=== PATIENT | male | born 1975 | race Caucasian/White ===

== ENCOUNTER 2017-01-12 19:29 | Emergency (ER) | payer BC, OTHER ==
[2017-01-12 19:42] VITALS: O2SAT 95
[2017-01-12] MEDS ORDERED: Rocephin 1000 MG INJ IM ONE (19:44)
[2017-01-12] MEDS ORDERED: Rocephin 1000 MG INJ ONE (19:47)
[2017-01-12] MEDS ORDERED: XYLOCAINE 1% HCL 20 ML MDV ONE (19:47)
--- NOTE | 2017-01-12 19:48 | ERPHSYRPT ---
- History of Present Illness Time Seen by Provider: 01/12/17 19:45 Source: patient Exam Limitations: no limitations Patient Subjective Stated Complaint: swelling to right with blister from rubbing of sock.. pain up to calf. no known injury. Triage Nursing Assessment: swelling to left ankle with open blistered area noted top back of ankle with redness. + pedal pulse persent.. Physician History: swelling to right with blister from rubbing of sock.. pain up to calf. no known injury. no fever Method of Injury: unknown Occurred: this afternoon Severity of Pain-Max: mild Severity of Pain-Current: mild Lower Extremities Pain: foot: right, ankle: right Modifying Factors: Improves With: nothing Associated Symptoms: none Allergies/Adverse Reactions: acetaminophen [From Darvocet-N 100] Allergy (Mild, Verified 04/20/13 13:16) Penicillins Allergy (Mild, Verified 04/20/13 13:16) propoxyphene napsylate [From Darvocet-N 100] Allergy (Mild, Verified 04/20/13 13 :16) Home Medications: Fluoxetine HCl 20 mg [Prozac 20 MG] 20 mg PO 01/12/17 [History] Gabapentin 400 mg PO TID 01/12/17 [History] Hx Tetanus, Diphtheria Vaccination/Date Given: No Hx Influenza Vaccination/Date Given: No Hx Pneumococcal Vaccination/Date Given: No Immunizations Up to Date: Yes (staets 4 years ag) - Review of Systems Constitutional: No Symptoms Eyes: No Symptoms Ears, Nose, & Throat: No Symptoms Respiratory: No Symptoms Cardiac: No Symptoms Abdominal/Gastrointestinal: No Symptoms Genitourinary Symptoms: No Symptoms Musculoskeletal: Joint Redness, Joint Swelling - Past Medical History Pertinent Past Medical History: Yes Neurological History: No Pertinent History ENT History: No Pertinent History Cardiac History: Hypertension Respiratory History: No Pertinent History Endocrine Medical History: No Pertinent History Musculoskeletal History: No Pertinent History GI Medical History: No Pertinent History History: No Pertinent History Psycho-Social History: Anxiety, Depression Male Reproductive Disorders: No Pertinent History - Past Surgical History Past Surgical History: Yes Neuro Surgical History: No Pertinent History Cardiac: No Pertinent History Respiratory: No Pertinent History Gastrointestinal: Appendectomy Genitourinary: No Pertinent History Musculoskeletal: Orthopedic Surgery, Other Male Surgical History: No Pertinent History Other Surgical History: HARIS HANDS FROM FRACTURES IN THE PAST - Social History Smoking Status: Current every day smoker How long have you smoked: 20 Exposure to second hand smoke: Yes Drug Use: none Patient Lives Alone: No - Nursing Vital Signs Nursing Vital Signs: Initial Vital Signs Temperature 98.8 F 01/12/17 19:33 Pulse Rate 102 H 01/12/17 19:33 Respiratory Rate 18 01/12/17 19:33 Blood Pressure 151/85 01/12/17 19:33 O2 Sat by Pulse Oximetry 95 01/12/17 19:33 Pain Scale Pain Intensity 5 - Physical Exam General Appearance: no apparent distress Back Exam: normal inspection Ankle Exam: right ankle: soft tissue tenderness Neuro/Tendon Exam: normal sensation Mental Status Exam: alert Skin Exam: normal color SpO2 Interpretation: normal SpO2: 95 - Course Nursing assessment & vital signs reviewed: Yes Ordered Tests: Medication Summary Generic Name Dose Route Start Last Admin Trade Name Freq PRN Reason Stop Dose Admin Ceftriaxone Sodium 1,000 mg 01/12/17 19:44 Rocephin 1000 Mg Inj IM 01/12/17 19:45 STAT ONE - Progress Progress: unchanged Counseled pt/family regarding: diagnosis, need for follow-up - Departure Time of Disposition: 19:48 Departure Disposition: Home Clinical Impression: Cellulitis of right ankle Condition: Stable Critical Care Time: No Referrals: DOCTOR,NO FAMILY [Primary Care Provider] - Instructions: Cellulitis -- Adult Additional Instructions: Please follow the instructions given to you. Please take your medication as prescribed if given. If symptoms recur or get worse, come back to the emergency room if you cannot reach your primary care physician, or call your primary care physician for an appointment. Again if your symptoms get worse, come back to the emergency room. Thanks for visiting emergency room, and let us take care of you. Prescriptions: Ciprofloxacin [Cipro 500 MG] 500 mg PO BIDAC #20 tablet
[2017-01-12 20:17] VITALS: BP 137/78; PULSE 104
== END 2017-01-12 20:17 | disposition home or self-care (01) ==
LOC: ED 19:29
DX: L03.115 Cellulitis of right lower limb (principal)
CPT/HCPCS: 96372; 99284; J0696

== ENCOUNTER 2019-01-16 17:36 | Emergency (ER) | payer MEDICARE ==
[2019-01-16] MEDS ORDERED: GlucaGen 1 MG IV ONE (18:06)
--- NOTE | 2019-01-16 18:11 | ERPHSYRPT ---
- History of Present Illness Time Seen by Provider: 01/16/19 17:55 Source: patient Exam Limitations: no limitations Patient Subjective Stated Complaint: Pt states "I was eating a bbq sandwhich and I hiccuped at the same time and it felt like I got something down the wrong pipe. I cleared that but now I have something stuck in my chest, I tried to drink water and I threw it all back up." Triage Nursing Assessment: Pt presented alert and oriented X 3, skin pwd Pt ambualtes with an upright steady gait, able to speak in clear full sentences. Pt in no respiratory distress, pt dry heaving. Physician History: Patient was eating pork and swallowed a large amount. He began belching and anytime he tried to consume fluid, he immediately regurgitated the liquids back up and he feels like something is stuck in his chest. Timing/Duration: today, hour(s) (1) Severity: moderate Modifying Factors: Worsens With: eating Associated Symptoms: No nausea, No vomiting, No abdominal pain, No shortness of breath, No heartburn, No diaphoresis, No cough, No chills, No chest pain, No fever, No headaches, No loss of appetite, No malaise, No rash, No syncope, No seizure, No weakness Allergies/Adverse Reactions: acetaminophen [From Darvocet-N 100] Allergy (Mild, Verified 04/20/13 13:16) Penicillins Allergy (Mild, Verified 04/20/13 13:16) propoxyphene napsylate [From Darvocet-N 100] Allergy (Mild, Verified 04/20/13 13 :16) Home Medications: Gabapentin 400 mg PO TID 01/12/17 [History] ARIPiprazole [Aripiprazole] 5 mg PO DAILY 01/16/19 [History] Trazodone HCl 50 mg [Desyrel 50 mg] 50 mg PO DAILY 01/16/19 [History] Hx Tetanus, Diphtheria Vaccination/Date Given: Yes Hx Influenza Vaccination/Date Given: Yes Hx Pneumococcal Vaccination/Date Given: No Immunizations Up to Date: Yes - Review of Systems Constitutional: No Fever, No Chills Eyes: No Eye Pain, No Vision Changes Ears, Nose, & Throat: Painful Swallowing, No Mouth Swelling, No Throat Pain, No Throat Swelling, No Stridor Respiratory: No Cough, No Dyspnea Cardiac: No Chest Pain, No Edema, No Syncope Abdominal/Gastrointestinal: No Abdominal Pain, No Nausea, No Vomiting, No Diarrhea, No Hematemesis, No Hematochezia Genitourinary Symptoms: No Dysuria, No Hematuria, No Flank Pain Musculoskeletal: No Back Pain, No Neck Pain, No Myalgias Skin: No Rash Neurological: No Dizziness, No Focal Weakness, No Sensory Changes Psychological: No Symptoms Endocrine: No Symptoms Hematologic/Lymphatic: No Easy Bleeding, No Easy Bruising All Other Systems: Reviewed and Negative - Past Medical History Pertinent Past Medical History: Yes Neurological History: No Pertinent History ENT History: No Pertinent History Cardiac History: Hypertension Respiratory History: No Pertinent History Endocrine Medical History: No Pertinent History Musculoskeletal History: No Pertinent History GI Medical History: No Pertinent History History: No Pertinent History Psycho-Social History: Anxiety, Depression Male Reproductive Disorders: No Pertinent History - Past Surgical History Past Surgical History: Yes Neuro Surgical History: No Pertinent History Cardiac: No Pertinent History Respiratory: No Pertinent History Gastrointestinal: Appendectomy Genitourinary: No Pertinent History Musculoskeletal: Orthopedic Surgery, Other Male Surgical History: No Pertinent History Other Surgical History: HARIS HANDS FROM FRACTURES IN THE PAST - Social History Smoking Status: Current every day smoker How long have you smoked: years Exposure to second hand smoke: Yes Drug Use: none Patient Lives Alone: No - Nursing Vital Signs Nursing Vital Signs: Initial Vital Signs Temperature 98.1 F 01/16/19 17:37 Pulse Rate 90 01/16/19 17:37 Respiratory Rate 18 01/16/19 17:37 Blood Pressure 144/91 01/16/19 17:37 O2 Sat by Pulse Oximetry 98 01/16/19 17:37 Pain Scale Pain Intensity 8 - Physical Exam General Appearance: no apparent distress, alert Eye Exam: PERRL/EOMI, eyes nml inspection Ears, Nose, Throat Exam: normal ENT inspection, pharynx normal, moist mucous membranes Neck Exam: normal inspection, non-tender, supple, full range of motion, No meningismus, No mass, No lymphadenopathy Respiratory Exam: normal breath sounds, lungs clear, airway intact, No respiratory distress, No accessory muscle use, No prolonged expirations, No crackles/rales, No rhonchi, No wheezing, No stridor Cardiovascular Exam: regular rate/rhythm, normal heart sounds, normal peripheral pulses, capillary refill <2 sec Gastrointestinal/Abdomen Exam: soft, normal bowel sounds, No tenderness, No distention, No mass, No guarding, No rebound Back Exam: normal inspection, normal range of motion, No CVA tenderness, No vertebral tenderness Extremity Exam: normal inspection, normal range of motion, pelvis stable Neurologic Exam: alert, oriented x 3, cooperative, lawyer probate II-XII nml as tested, normal mood/affect, nml station & gait, sensation nml, No motor deficits Skin Exam: normal color, warm, dry, No rash Lymphatic Exam: No adenopathy SpO2 Interpretation: normal SpO2: 98 O2 Delivery: Room Air Ordered Tests: Active Orders 24 hr Category Date Time Status IV Insertion STAT Care 01/16/19 18:06 Active Medication Summary Discontinued Medications Generic Name Dose Route Start Last Admin Trade Name Ryan PRN Reason Stop Dose Admin Glucagon 1 mg 01/16/19 18:06 01/16/19 18:28 Glucagen 1 Mg IV 01/16/19 18:07 1 mg STAT ONE Administration Glucagon Confirm 01/16/19 18:27 Glucagen 1 Mg Administered 01/16/19 18:28 Dose 1 mg .ROUTE .STK-MED ONE - Progress Progress: unchanged Progress Note: 01/16/19 19:00 some subjective improvement with IV glucagon but no objective improvement with IV glucagon as patient regurgitated the fluid challenge 01/16/19 19:05 Discussed the patient with Dr Bro Jean-Baptiste, General Surgeon. Dr Jean-Baptiste will take the patient to the OR and perform EGD for further evaluation and treatment. Discussed with : Dora (@19:05) Counseled pt/family regarding: diagnosis, need for follow-up - Departure Departure Disposition: Home, Observation (taken to the OR for further evaluation and management by Dr Bro Jean-Baptiste at [facility]) Clinical Impression: Esophageal obstruction due to food impaction Hypertension Qualifiers: Hypertension type: essential hypertension Qualified Code(s): I10 - Essential ( primary) hypertension Condition: Good Critical Care Time: No Referrals: DOCTOR,NO FAMILY [Primary Care Provider] - Instructions: Removal of Foreign Body, Swallowed, Adult
[2019-01-16] MEDS ORDERED: GlucaGen 1 MG ONE (18:27)
[2019-01-16 19:37] VITALS: O2SAT 100
[2019-01-16] MEDS ORDERED: DIPRIVAN 200 MG/20 ML IV ONE ×2 (20:04→20:28)
[2019-01-16] MEDS ORDERED: Lactated Ringers 1,000 ML IV ONE (20:04)
[2019-01-16] MEDS ORDERED: Ketamine HCl 50 MG/ML ONE (20:04)
[2019-01-16 21:23] VITALS: BP 127/87; PULSE 96
--- NOTE | 2019-01-17 11:04 | OP ---
SURGERY DATE/TIME: 01/16/20192009 PREOPERATIVE DIAGNOSIS: Foreign body of esophagus. POSTOPERATIVE DIAGNOSIS: Lodged pork chop. PROCEDURES: 1) EGD. 2) Extraction of pork chop. SURGEON: Pancho Jean-Baptiste M.D. ANESTHESIA: MAC. COMPLICATIONS: None. CONDITION: Stable. INDICATION: A patient requiring evaluation. Is spitting up at this time. He feels he has a lodged pork chop. DESCRIPTION OF PROCEDURE: He was taken to endoscopy. A spittoon was present. Routine readiness with suction available. MAC sedation provided. Scope introduced. 3 ounces clear saliva was suctioned from above the bolus. At this time three pieces of bolus was pulled out and at that time the bolus was able to be pushed forward. There was a rim of irritation but there was nothing specific. Fundus, body, antrum, pylorus, duodenal bulb, second portion satisfactory. There was a 2 inch hiatal hernia and again this rim or irritation was inspected. The stricture was fairly light about 44 but is quite irritated and no additional dilatation was performed. He can return back to the office in two weeks.
== END 2019-01-16 21:23 | disposition home or self-care (01) ==
LOC: ED 17:36
DX: K22.2 Esophageal obstruction (principal); T18.128A Food in esophagus causing other injury, initial encounter; I10 Essential (primary) hypertension; Z79.899 Other long term (current) drug therapy
CPT/HCPCS: 96374; 99140; 99284; J1610; J2704